=== PATIENT | male | born 1985 | race Caucasian/White ===

== ENCOUNTER 2020-04-06 09:26 | Outpatient (REF) | payer OTHER, SELFPAY | END 2020-04-06 09:27 | disposition home or self-care (01) | LOC: HO.LAB 09:26 | PROVIDERS: Visit Provider Internal Medicine | DX: Z20.822 Contact with and (suspected) exposure to COVID-19 (principal) | CPT/HCPCS: 36415; C9803; U0003 ==

== ENCOUNTER 2020-11-09 08:53 | Outpatient (REF) | payer OTHER, SELFPAY ==
[2020-11-09 10:05] LABS: MANUAL DIFF FLAG NO
[2020-11-09 10:19] LABS: Basophils Percent Auto 0.6 % (0-2); Eosinophils Absolute Auto 0.3 X10*3/uL (0.0-0.4); Eosinophils Percent Auto 5.1 % (0-4); Hematocrit 47.6 % (42-52); Hemoglobin 15.9 g/dl (14.0-18.0); Imm Gran Abs Auto 0.02 X10*3/uL (0.00-0.03); Imm Gran Pct Auto 0.3 % (0.0-0.4); Lymphocytes Absolute Auto 2.5 X10*3/uL (1.2-4.9); Mean Corpuscular HGB Conc 33.4 g/dl (31.0-36.0); Mean Corpuscular Hemoglobin 29.6 pg (27.0-33.0); Mean Corpuscular Volume 88.5 fL (80-98); Mean Platelet Volume 9.3 fL (9.4-12.4); Monocytes Absolute Auto 0.5 X10*3/uL (0.1-1.2); Monocytes Percent Auto 8.3 % (2-11); Neutrophils Absolute Auto 2.9 X10*3/uL (2.0-8.3); Neutrophils Percent Auto 45.7 % (45-73); Platelet Count 306 X10*3/uL (160-400); Red Blood Count 5.38 X10*6/uL (4.60-5.80); Red Cell Distribution Width 11.9 % (11.0-16.0); White Blood Count 6.3 X10*3/uL (4.8-10.8)
[2020-11-09 14:21] LABS: Alanine Aminotransferase 20 U/L (0-40); Albumin Level 4.5 g/dL (3.5-5.0); Alkaline Phosphatase 88 U/L (39-117); Anion Gap 14 (12-20); Aspartate Amino Transferase 18 U/L (5-37); Bilirubin Total 0.6 mg/dL (0.0-1.0); Blood Urea Nitrogen 16 mg/dL (9-16); Calcium 9.6 mg/dL (8.4-10.2); Carbon Dioxide 27 mmol/L (22-29); Chloride 105 mmol/L (96-108); Cholesterol 207 mg/dL; Estimated Glomerular Filt Rate > 60; Glucose Fasting 90 mg/dL (60-99); HDL Cholesterol 43 mg/dL; LDL Cholesterol Calculated 142 mg/dl; Potassium 4.7 mmol/L (3.3-5.1); Sodium 141 mmol/L (135-145); Total Protein 6.8 g/dL (6.5-8.0); Triglycerides 113 mg/dL
[2020-11-13 13:43] LABS: Vitamin D 25-OH, D2 <4 ng/mL; Vitamin D 25-OH, D3 32 ng/mL; Vitamin D 25-OH, Total 32 ng/mL (30-100)
== END 2020-11-09 08:54 | disposition home or self-care (01) ==
LOC: HO.LAB 08:53
PROVIDERS: PCP Internal Medicine; Visit Provider Internal Medicine
DX: E55.9 Vitamin D deficiency, unspecified (principal); E78.5 Hyperlipidemia, unspecified; D64.9 Anemia, unspecified; K21.9 Gastro-esophageal reflux disease without esophagitis
CPT/HCPCS: 36415; 80053; 80061; 82306; 85025

== ENCOUNTER 2021-02-12 17:39 | Emergency (ER) | payer OTHER, SELFPAY ==
[2021-02-12 17:59] VITALS: BP 136/86; PULSE 102; RESP 18; TEMP 36.9; O2SAT 96; BMI 23.1
--- NOTE | 2021-02-12 20:55 | ED_ITS ---
HPI - Dental/Oral General Chief complaint: Dental/Oral Stated complaint: Dental pain Time Seen by Provider: 02/12/21 20:54 History of Present Illness HPI Narrative: Patient 35 years old presents today with having toothache for the last few days. Getting worse. History of similar episodes in the past. Patient has a dentist however was unable to see them in time. Has an appointment on Sunday. No fever no chills no cough no congestion or respiratory symptoms no systemic complaints or changes in voice. Patient from home. Teeth map: 2 1. Related Data Home Medications Medication Instructions Recorded Confirmed ibuprofen 800 mg tablet 800 mg PO TID 03/01/20 11/01/20 meloxicam 15 mg tablet 15 mg PO DAILY 03/01/20 11/01/20 omega-3 fatty acids 1,000 mg 1,000 mg PO DAILY 03/01/20 11/01/20 capsule (Fish Oil Concentrate) Previous Rx's Medication Instructions Recorded omeprazole 20 mg capsule,delayed 20 mg PO DAILY 90 Days #90 cap 06/18/20 release albuterol sulfate 90 mcg/actuation 2 puff PO Q6H PRN 30 Days #6.7 g 06/28/20 aerosol inhaler (ProAir HFA) montelukast 10 mg tablet 10 mg PO DAILY #90 tab 08/11/20 bupropion HCl 150 mg 24 hr tablet, 150 mg PO QAM 90 Days #90 tab 08/24/20 extended release cyclobenzaprine 10 mg tablet 10 mg PO BEDTIME PRN 90 Days #90 09/01/20 tab insert sole #1 ea 11/01/20 levocetirizine 5 mg tablet 5 mg PO DAILY 90 Days #90 tab 12/10/20 penicillin V potassium 500 mg 500 mg PO TID #20 tab 02/12/21 tablet Allergies Allergy/AdvReac Type Severity Reaction Status Date / Time doxycycline Allergy Mild dermatitis Verified 11/01/20 10:57 TICK MEDICINE Allergy Unknown UNKNOWN Uncoded 11/01/20 10:57 Review of Systems Review of Systems: Positive toothache Yes all other systems are reviewed and are negative PMFSH Past Medical History Attestation statement: The following information was validated with the patient. Medical History Ankle joint deformity Ankle pain GERD (gastroesophageal reflux disease) Mild asthma Surgical History History of wisdom tooth extraction Family History Family History Father COPD (chronic obstructive pulmonary disease) Mother Muscular dystrophy Social History Social History Housing: House Alcohol intake: current Alcohol intake frequency: holidays/special occasions only Alcohol type: wine and other Patient Tobacco Use Status: Never used Tobacco e-Cigarette/Vaping Use: Never Used Second Hand Smoke Exposure: No service: No Current occupational status: unemployed Physical Exam Vital Signs: Vital Signs: Last Vital Signs Temp 98.5 F 02/12/21 17:59 Pulse 102 H 02/12/21 17:59 Resp 18 02/12/21 17:59 BP 136/86 02/12/21 17:59 Pulse Ox 96 02/12/21 17:59 Body Mass Index 23.1 Appearance: Alert. Oriented X3. No acute distress. Eyes: Pupils equal, round and reactive to light. ENT: Pharynx normal. Positive tooth decay in the never tent frontal canine on the upper jaw. There is no abscess palpable. Neck: Normal inspection. Neck supple. No lymph nodes noted. No crepitus CVS: Normal heart rate and rhythm. Pulses normal. Normal S1 and S2 Respiratory: No respiratory distress. Breath sounds normal. No Wheezing. No rales Abdomen: Soft and nontender. No rigidity. No distention. good BS x4 Skin: Skin warm and dry. Normal skin color. Normal skin turgor. Extremities: No lower extremity edema. Neurovascular intact to all extremities. No Lacerations. No Rash Neuro: Oriented X 3. No motor deficit. No sensory deficit. Moving all extermities. No slurred speech MDM - Dental/Oral MDM Narrative Medical decision making narrative: Positive tooth decay. Will go ahead and give antibiotics. Patient to be followed up with dentist on Sunday. Differential Diagnosis Differential diagnosis: Likely dental caries Medical Records Attestation: I reviewed the patient's medical records. Discharge Plan Discharge Clinical Impression: Dental caries Patient Disposition: Home, Self-Care Instructions: Toothache (ED) Prescriptions: New penicillin V potassium 500 mg tablet 500 mg PO TID Qty: 20 RF: 0 No Action omeprazole 20 mg capsule,delayed release(DR/EC) 20 mg PO DAILY 90 Days Qty: 90 RF: 3 albuterol sulfate [ProAir HFA] 90 mcg/actuation HFA aerosol inhaler 2 puff PO Q6H PRN (Reason: bronchospasm) 30 Days Qty: 6.7 RF: 3 montelukast 10 mg tablet 10 mg PO DAILY Qty: 90 RF: 3 bupropion HCl 150 mg tablet extended release 24 hr 150 mg PO QAM 90 Days Qty: 90 RF: 1 cyclobenzaprine 10 mg tablet 10 mg PO BEDTIME PRN (Reason: muscle spasm) 90 Days Qty: 90 RF: 1 levocetirizine 5 mg tablet 5 mg PO DAILY 90 Days Qty: 90 RF: 1 omega-3 fatty acids [Fish Oil Concentrate] 1,000 mg capsule 1,000 mg PO DAILY RF: 0 meloxicam 15 mg tablet 15 mg PO DAILY RF: 0 ibuprofen 800 mg tablet 800 mg PO TID RF: 0 (DME) insert sole See Rx Instructions .Route .MEDSUPPLY Qty: 1 RF: 0 Referrals: Belinda Tian MD [Primary Care Provider] - 2 days (Please follow-up with your dentist on Sunday)
== END 2021-02-12 21:44 | disposition home or self-care (01) ==
LOC: HO.ED 21:06
PROVIDERS: Emergency Provider Emergency Medicine Emergency Medical Services; PCP Internal Medicine
DX: K02.9 Dental caries, unspecified (principal)
CPT/HCPCS: 99283

== ENCOUNTER 2021-04-18 07:52 | Outpatient (REF) | payer OTHER, SELFPAY ==
[2021-04-18 09:39] LABS: Binax Now Covid-19 Ag Negative (Negative)
[2021-04-18 09:40] LABS: Binax Internal Control QC Valid
== END 2021-04-18 07:53 | disposition home or self-care (01) ==
LOC: HO.LAB 07:52
PROVIDERS: Visit Provider Internal Medicine
DX: Z20.822 Contact with and (suspected) exposure to COVID-19 (principal)
CPT/HCPCS: C9803

== ENCOUNTER 2021-11-07 08:18 | Outpatient (REF) | payer OTHER, SELFPAY ==
--- NOTE | ~2021-11-07 | XR_ITS ---
EXAMINATION: XR SHOULDER, RIGHT CLINICAL INFORMATION: Right shoulder pain COMPARISON: None TECHNIQUE: Right shoulder is imaged in 4 views. FINDINGS: Normal bony mineralization. No fracture, dislocation, or arthropathy. The acromioclavicular alignment is normal. No visible rotator cuff calcifications. XR/XR shoulder RT min 2V IMPRESSION: Normal right shoulder.
[2021-11-07 09:21] LABS: Alanine Aminotransferase 17 U/L (0-40); Albumin Level 4.6 g/dL (3.5-5.0); Alkaline Phosphatase 84 U/L (39-117); Anion Gap 12 (12-20); Aspartate Amino Transferase 16 U/L (5-37); Bilirubin Total 0.8 mg/dL (0.0-1.0); Blood Urea Nitrogen 19 mg/dL (9-16); Calcium 9.2 mg/dL (8.4-10.2); Carbon Dioxide 30 mmol/L (22-29); Chloride 104 mmol/L (96-108); Cholesterol 200 mg/dL; Estimated Glomerular Filt Rate > 60; Glucose Fasting 104 mg/dL (60-99); HDL Cholesterol 43 mg/dL; LDL Cholesterol Calculated 142 mg/dl; Potassium 4.4 mmol/L (3.3-5.1); Sodium 142 mmol/L (135-145); Triglycerides 76 mg/dL
== END 2021-11-07 08:19 | disposition home or self-care (01) ==
LOC: HO.LAB 08:18
PROVIDERS: PCP Internal Medicine; Visit Provider Internal Medicine
DX: Z00.00 Encounter for general adult medical examination without abnormal findings (principal); M25.511 Pain in right shoulder
CPT/HCPCS: 36415; 73030; 80053; 80061

== ENCOUNTER 2022-09-07 12:32 | Outpatient (REF) | payer OTHER, SELFPAY ==
--- NOTE | 2022-09-07 12:39 | ECG_ITS ---
Test Reason : PREOP Blood Pressure : / mmHG Vent. Rate : 079 BPM Atrial Rate : 079 BPM P-R Int : 158 ms QRS Dur : 082 ms QT Int : 322 ms P-R-T Axes : 020 020 045 degrees QTc Int : 369 ms Normal sinus rhythm Minimal voltage criteria for LVH, may be normal variant ( Sokolow-Forrest ) Borderline ECG When compared with ECG of 11-JUL-2004 20:50, No significant change was found Referred By: Violet Ochoa Electronically Signed By:ABILIO WESTON MD
[2022-09-07 12:51] LABS: MANUAL DIFF FLAG NO
[2022-09-07 14:17] LABS: Basophils Absolute Auto 0.1 X10*3/uL (0.0-0.2); Basophils Percent Auto 0.6 % (0-2); Eosinophils Absolute Auto 0.5 X10*3/uL (0.0-0.4); Eosinophils Percent Auto 5.7 % (0-4); Hematocrit 49.4 % (42.0-52.0); Hemoglobin 16.6 g/dl (14.0-18.0); Imm Gran Abs Auto 0.02 X10*3/uL (0.00-0.03); Imm Gran Pct Auto 0.2 % (0.0-0.4); Lymphocytes Absolute Auto 2.3 X10*3/uL (1.2-4.9); Lymphocytes Percent Auto 27.9 % (20-40); Mean Corpuscular HGB Conc 33.6 g/dl (31.0-36.0); Mean Corpuscular Hemoglobin 29.3 pg (27.0-33.0); Mean Corpuscular Volume 87.1 fL (80.0-98.0); Mean Platelet Volume 9.4 fL (9.4-12.4); Monocytes Absolute Auto 0.7 X10*3/uL (0.1-1.2); Monocytes Percent Auto 8.3 % (2-11); Neutrophils Absolute Auto 4.6 x10*3/uL (2.0-8.3); Neutrophils Percent Auto 57.3 % (45-73); Platelet Count 296 X10*3/uL (160-400); Red Blood Count 5.67 X10*6/uL (4.60-5.80); White Blood Count 8.1 X10*3/uL (4.8-10.8)
[2022-09-07 14:41] LABS: Estimated Average Glucose 100 mg/dL; Hemoglobin A1c % 5.1 %
[2022-09-07 14:49] LABS: Alanine Aminotransferase 22 U/L (0-40); Albumin Level 4.6 g/dL (3.5-5.0); Alkaline Phosphatase 86 U/L (39-117); Anion Gap 15 (12-20); Aspartate Amino Transferase 18 U/L (5-37); Bilirubin Total 0.6 mg/dL (0.0-1.0); Blood Urea Nitrogen 19 mg/dL (9-16); Calcium 9.6 mg/dL (8.4-10.2); Carbon Dioxide 28 mmol/L (22-29); Chloride 105 mmol/L (96-108); Estimated Glomerular Filt Rate > 60; Glucose Random 77 mg/dL (60-115); Potassium 3.9 mmol/L (3.3-5.1); Sodium 144 mmol/L (135-145); Total Protein 7.3 g/dL (6.5-8.0)
== END 2022-09-07 12:33 | disposition home or self-care (01) ==
LOC: HO.LAB 12:32
PROVIDERS: PCP Internal Medicine; Visit Provider Nurse Practitioner Family
DX: Z01.810 Encounter for preprocedural cardiovascular examination (principal)
CPT/HCPCS: 36415; 80053; 83036; 85025; 85610; 93005

== ENCOUNTER 2022-11-08 09:21 | Outpatient (AMB) | payer OTHER, SELFPAY ==
--- NOTE | 2022-11-08 09:31 | A.OFFPC_ITS ---
Vital Signs 11/08/22 09:32 Height 5 ft 4 in Weight 140 lb BMI 24.0 BP 130/84 Blood Pressure Location Lt brachial Position Sitting Pulse 113 H Pulse Source Pulse Oximeter Pulse Oximetry (%) 98 Oxygen Delivery Method Room Air Intake Visit Reasons: Annual Exam Intake Note: Patient is here today for a physical. 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 Accompanied by: Self / Same As Patient Allergies doxycycline Allergy (Mild, Verified 11/08/22 09:41) dermatitis TICK MEDICINE Allergy (Unknown, Uncoded 11/08/22 09:41) UNKNOWN Medication List - Last Reconciled 11/08/22 by Belinda Shirley MD acetaminophen ER (Tylenol Arthritis Pain) 1,300 mg PO Q12H albuterol sulfate 90 mcg/actuation (ProAir HFA) 2 puffs PO Q6H PRN 30 days bupropion HCl 150 mg PO QAM 90 days cyclobenzaprine 10 mg PO TID 30 days fexofenadine 180 mg PO DAILY PRN fluticasone propionate 50 mcg/actuation 1 spray intranasal DAILY gabapentin 400 mg PO DAILY ibuprofen 800 mg PO Q8H [insert sole As directed] montelukast 10 mg PO DAILY omega-3 fatty acids (Fish Oil Concentrate) 1,000 mg PO DAILY omeprazole 20 mg PO DAILY 90 days Tobacco use date assessed: 09/07/22 Dental Screening Dental Screen Date: 11/08/22 Did you have a dental visit in the last 12 months?: No Did you have a dental problem in the last 6 months where you did not have access to dental care?: No Was dental information given to patient?: Patient has dentist HPI HPI Comments History of Present Illness Details This is a 37-year-old male that comes for his physical exam. No acute complaints. On crutches due to left ankle surgery done 09/22/2022. Accompanied by frank. [facility] Medical History Ankle joint deformity Ankle pain GERD (gastroesophageal reflux disease) Mild asthma Surgical History (Updated 11/08/22 @ 09:59 by Belinda Shirley MD) H/O tooth extraction History of wisdom tooth extraction Left ankle joint deformity Family History Father COPD (chronic obstructive pulmonary disease) Mother Muscular dystrophy Social History Housing: House Alcohol intake: current Alcohol intake frequency: holidays/special occasions only Alcohol type: wine and other Patient Tobacco Use Status: Never used Tobacco e-Cigarette/Vaping Use: Never Used Second Hand Smoke Exposure: No service: No Current occupational status: unemployed Cognitive needs: Yes Hearing needs: No Vision needs: No Questionnaire PHQ-9 Over the last 2 weeks, how often have you been bothered by any of the following problems? 1. Little interest or pleasure in doing things: not at all 2. Feeling down, depressed, or hopeless: not at all 3. Trouble falling or staying asleep, or sleeping too much: not at all 4. Feeling tired or having little energy: not at all 5. Poor appetite or overeating: not at all 6. Feeling bad about yourself - or that you are a failure or have let yourself or your family down: not at all 7. Trouble concentrating on things, such as reading the newspaper or watching television: not at all 8. Moving or speaking so slowly that other people could have noticed. Or the opposite - being so fidgety or restless that you have been moving around a lot more than usual: not at all 9. Thoughts that you would be better off or of hurting yourself in some way: not at all Total score: 0 Depression Screening Interpretation: Negative 01529 - PHQ-9 Billing: Yes Source: Developed by Drs. Moises Patino, Lisset Johnson, Arcenio Garcia and colleagues, with an educational sandy from [employer]. Thrive Questionnaire Date Thrive assessed: 11/08/22 I am a: Patient What is your living situation today?: I have a steady place to live Within the past 12 months, did the food you bought not last and you didn't have the money to get more?: Never true Within the past 12 months, did you worry whether your food would run out before you got money to buy more?: Never true Do you have trouble paying for medicines?: No Do you have trouble getting transportation to medical appointments?: No Do you have trouble paying your heating and electricity bill?: No Do you have trouble taking care of your child, family member or friend?: No Do you have trouble with day-to-day activities such as bathing, preparing meals, shopping, managing finances, etc.?: No Are you currently unemployed and looking for a job?: No Are you interested in more education?: No Please select the resources that you would like help with: None Currently or been in a relationship where the following occur: no concerns reported AUDIT C Alcohol Use Questionnaire (AUDIT-C) 1. How often do you have a drink containing alcohol?: Monthly or less 2. How many drinks containing alcohol do you have on a typical day when you are drinking?: 1 or 2 3. How often do you have six or more drinks on one occasion?: Never Total Score: 1 Score Reviewed/Action Taken: No ALLAN-7 AMB Questionnaire ALLAN-7 Date ALLAN - 7 assessed: 11/08/22 Feeling nervous, anxious, or on edge: 0 = Not at all Not being able to stop or control worryin = Not at all Worrying too much about different things: 0 = Not at all Trouble relaxin = Not at all Being so restless that it is hard to sit still: 0 = Not at all Becoming easily annoyed or irritable: 0 = Not at all Feeling afraid as if something awful might happen: 0 = Not at all Total ALLAN-7 score (0-4 normal; 5-9 mild; 10-14 moderate; 15-21 severe): 0 Source: Developed by Drs. Moises Patino, Lisset Johnson, Arcenio Garcia and colleagues, with an educational sandy from [employer]. ALLAN-7 Assessment Billing ALLAN-7 Assessment Tool: ALLAN-7 Assessment 72775 Review of Systems Const All systems reviewed & are unremarkable except as noted in HPI and below Eyes Reports no additional complaints, Denies change in vision and Denies other visual disturbances Card Denies chest pain at rest, Denies chest pain with activity, Denies edema, Denies irregular heart rhythm, Denies claudication, Denies dyspnea, Denies dyspnea on exertion, Denies orthopnea, Denies paroxysmal nocturnal dyspnea and Denies slow heart rate Resp Denies cough, Denies dyspnea and Denies dyspnea on exertion GI Denies abdominal pain, Denies change in bowel habits, Denies excessive flatus, Denies nausea and Denies vomiting Denies urinary hesitancy, Denies urinary incontinence and Denies urinary urgency Musc Denies abnormal gait, Denies atrophy, Denies deformity and Denies limited range of motion Skin/Breast Denies bleeding lesions, Denies changing lesions and Denies rash Neuro Denies abnormal gait and Denies lack of coordination Physical exam (Primary Care) Vital Signs: Last Vital Signs Pulse 113 H 11/08/22 09:32 BP 130/84 11/08/22 09:32 Pulse Ox 98 11/08/22 09:32 Oxygen Delivery Method Room Air 11/08/22 09:32 BMI result Body Mass Index 24.0 Tobacco/Smoking Status: Tobacco use Status Tobacco use date assessed 09/07/22 11/08/22 09:38 Patient Tobacco Use Status Never used Tobacco 11/08/22 09:38 e-Cigarette/Vaping Use Never Used 11/08/22 09:38 PHQ-9: PHQ-9 Score PHQ-9: Total score 0 11/08/22 09:38 Depression Screening Interpretation: Negative Thrive Assessment: Date of Thrive Assessment Date Thrive assessed 11/08/22 11/08/22 09:38 Currently or been in a relationship where the following occur: no concerns reported Const Orientation/consciousness: patient oriented x3 Limitations: crutches HENMT Head: Yes normal to inspection, Yes normocephalic and Yes atraumatic Ears: external ears normal Eyes General: appearance normal, both eyes and all related structures Eyelids: Yes eyelids normal Conjunctivae: conjunctivae normal Neck Neck: Yes normal visual inspection and Yes supple Resp Effort & Inspection: normal respiratory effort Auscultation: clear to auscultation bilaterally Cardio Jugular venous distension: no JVD Rate: regular rate Rhythm: regular rhythm Heart sounds: S1 normal heart sound present and S2 normal heart sound present GI Inspection: Yes normal to inspection Palpation (GI): Soft to palpation and nontender Auscultation: normal bowel sounds Skin General skin exam: no rashes or lesions noted Neuro General: patient oriented x3 and no focal motor deficits Extrem Other: unna boot on left foot Psych Appearance: grossly normal Assessment and Plan Assessment & Plan (1) Encounter for physical examination: Code(s): Z00.00 - Encounter for general adult medical examination without abnormal findings Plan: Repeat in a year. Coding Level of Care Code Est Pt Prev Care 18-39y(66358) Diagnoses Encounter for physical examination Z00.00 Additional Codes ALLAN-7 Assessment Billing - ALLAN-7 Assessment Tool: ALLAN-7 Assessment 27467 ([id number]) Time Spent (min) 32
[2022-11-08 09:32] VITALS: BP 130/84; PULSE 113; O2SAT 98; BMI 24.0
== END 2022-11-08 09:55 | disposition home or self-care (01) ==
PROVIDERS: PCP Internal Medicine; Visit Provider Internal Medicine
DX: Z00.00 Encounter for general adult medical examination without abnormal findings (principal)
CPT/HCPCS: 99395

== ENCOUNTER 2023-04-02 12:35 | Outpatient (AMB) | payer OTHER, SELFPAY ==
[2023-04-02 13:56] VITALS: BP 120/82; PULSE 94; TEMP 36.9; O2SAT 98; BMI 24.6
--- NOTE | 2023-04-02 13:56 | MHC.OFFWIV ---
Intake Vital Signs 04/02/23 13:56 Height 5 ft 4 in Weight 143 lb 8 oz BMI 24.6 BP 120/82 Blood Pressure Location Lt brachial Position Sitting Pulse 94 Pulse Source Pulse Oximeter Temp 98.5 F Temp Source Oral Pulse Oximetry (%) 98 Oxygen Delivery Method Room Air Intake Visit Reasons: EST/ dry cough (lobby masked) Intake Note: Patient is here with dry cough since , getting worse with upper back pain. Patient Tobacco Use Status: Never used Tobacco Allergies doxycycline Allergy (Mild, Verified 04/02/23 13:57) dermatitis TICK MEDICINE Allergy (Unknown, Uncoded 04/02/23 13:57) UNKNOWN Do you need a note to return to daycare/school/sports/work: No HPI HPI Comments History of Present Illness Details Patient presents to the walkin clinic today for cough, congestion for last 5 days. He reports significant other has been sick with the same, she is a teacher and caught it from a student Patient has been using OTC medications but symptoms persist He reports cough, sinus congestion, fatigue and body aches denies chest pain, syncope, palpitations, dizziness weakness, nausea, vomiting, diarrhea PFSH Medical History (Updated 04/02/23 @ 15:27 by Mary Garcia APRN, CORRECTIONAL SECURITY OFFICER) Ankle joint deformity GERD (gastroesophageal reflux disease) Ankle pain Mild asthma Surgical History (Updated 11/08/22 @ 09:59 by Belinda Shirley MD) H/O tooth extraction Left ankle joint deformity History of wisdom tooth extraction Family History Father COPD (chronic obstructive pulmonary disease) Mother Muscular dystrophy Social History Housing: House Alcohol intake: current Alcohol intake frequency: holidays/special occasions only Alcohol type: wine and other Patient Tobacco Use Status: Never used Tobacco e-Cigarette/Vaping Use: Never Used Second Hand Smoke Exposure: No service: No Current occupational status: unemployed Cognitive needs: Yes Hearing needs: No Vision needs: No Review of Systems Const All systems reviewed & are unremarkable except as noted in HPI and below Physical Exam Vital Signs: Last Vital Signs Temp 98.5 F 04/02/23 13:56 Pulse 94 04/02/23 13:56 BP 120/82 04/02/23 13:56 Pulse Ox 98 04/02/23 13:56 Oxygen Delivery Method Room Air 04/02/23 13:56 BMI result Body Mass Index 24.6 General: awake, alert, oriented. Answers questions appropriately. Fully engaged in examination. Skin: warm, dry, intact HEENT: TMs intact bilaterally, no redness. Posterior pharynx without erythema or exudate. Sclera without icterus or injection. Cardiac: External chest normal in appearance. Respiratory: +cough. LSCTAB. Abdomen: without gross distension. Neurological: Oriented to person, place, time and situation. Thought process intact. Psychiatric: Appropriate mood and affect. Good judgment and insight. Assessment & Plan Assessment & Plan (1) Upper respiratory infection: Code(s): J06.9 - Acute upper respiratory infection, unspecified Plan URI, no abx warranted. SARS-CoV2/FLU/RSV swab collected, results pending. Patient aware he will be called with results. Benzonatate 100mg po bid as needed Rest, drink plenty of fluids, tylenol or motrin as needed. Recommend taking OTC nasal decongestants or flonase. Follow up with pcp or in clinic for any new or worsening symptoms. Go to ER for shortness of breath, chest pain, palpitations, weakness, dizziness. All questions and concerns answered during visit, patient agrees with plan. Orders: Orders SARS-CoV2/FLU/RSV Today J06.9 - Acute upper respiratory infection, unspecified Medications: New benzonatate 100 mg PO BID PRN 20 caps 0RF cough Coding Level of Care Code Est Pt Level 4 (58943) Diagnoses Upper respiratory infection J06.9
== END 2023-04-02 15:02 | disposition home or self-care (01) ==
PROVIDERS: PCP Internal Medicine; Visit Provider Registered Nurse Emergency
DX: J06.9 Acute upper respiratory infection, unspecified (principal)
CPT/HCPCS: 99214

== ENCOUNTER 2023-04-02 14:49 | Outpatient (REF) | payer OTHER, SELFPAY ==
[2023-04-02 18:02] LABS: Influenza A PCR NEGATIVE (Negative); Influenza B PCR NEGATIVE (Negative); Resp Syncy Virus RNA Qual PCR NEGATIVE (Negative); SARS COV2 PCR INHOUSE NEGATIVE (Negative)
== END 2023-04-02 14:50 | disposition home or self-care (01) ==
LOC: HO.LAB 14:49
PROVIDERS: Visit Provider Registered Nurse Emergency
DX: J06.9 Acute upper respiratory infection, unspecified (principal); Z11.52 Encounter for screening for COVID-19; Z20.828 Contact with and (suspected) exposure to other viral communicable diseases
CPT/HCPCS: 0241U

== ENCOUNTER 2023-11-13 09:11 | Outpatient (AMB) | payer OTHER, SELFPAY ==
--- NOTE | 2023-11-13 09:15 | MHC.PC.OV ---
Vital Signs 11/13/23 09:17 Height 5 ft 4 in Weight 142 lb BMI 24.4 BP 130/82 Blood Pressure Location Lt brachial Position Sitting Intake Visit Reasons: Annual Exam Intake Note: Patient here for a physical exam Overlock Elastic Attacher Required: No Accompanied by: Self / Same As Patient Allergies doxycycline Allergy (Mild, Verified 11/13/23 09:56) dermatitis TICK MEDICINE Allergy (Unknown, Uncoded 11/13/23 09:56) UNKNOWN Medication List - Last Reconciled 11/13/23 by Belinda Shirley MD bupropion HCl XL 150 mg PO QAM 90 days cyclobenzaprine 10 mg PO TID 30 days fexofenadine 180 mg PO DAILY PRN fluticasone propionate 50 mcg/actuation 1 spray intranasal DAILY ibuprofen 800 mg PO Q8H PRN 30 days [insert sole As directed] montelukast 10 mg PO DAILY omega-3 fatty acids (Fish Oil Concentrate) 1,000 mg PO DAILY omeprazole 20 mg PO DAILY 90 days Ventolin HFA 90 mcg/actuation (albuterol sulfate) 2 puffs inhalation Q6H PRN 30 days NS Tobacco use date assessed: 11/13/23 Dental Screening Dental Screen Date: 11/13/23 Did you have a dental visit in the last 12 months?: Yes Did you have a dental problem in the last 6 months where you did not have access to dental care?: No Was dental information given to patient?: Patient has dentist HPI HPI Comments History of Present Illness Details This is a 38-year-old male that comes for his physical exam. No chest pain or shortness on breath. No acute complaint. [facility] Medical History Ankle joint deformity GERD (gastroesophageal reflux disease) Ankle pain Mild asthma Surgical History H/O tooth extraction Left ankle joint deformity History of wisdom tooth extraction Family History Father COPD (chronic obstructive pulmonary disease) Mother Muscular dystrophy Social History Housing: House Alcohol intake: current Alcohol intake frequency: holidays/special occasions only Alcohol type: wine and other Patient Tobacco Use Status: Never used Tobacco e-Cigarette/Vaping Use: Never Used Second Hand Smoke Exposure: No service: No Current occupational status: unemployed Cognitive needs: Yes Hearing needs: No Vision needs: No Questionnaire PHQ-9 Over the last 2 weeks, how often have you been bothered by any of the following problems? 1. Little interest or pleasure in doing things: not at all 2. Feeling down, depressed, or hopeless: not at all 3. Trouble falling or staying asleep, or sleeping too much: not at all 4. Feeling tired or having little energy: not at all 5. Poor appetite or overeating: not at all 6. Feeling bad about yourself - or that you are a failure or have let yourself or your family down: not at all 7. Trouble concentrating on things, such as reading the newspaper or watching television: not at all 8. Moving or speaking so slowly that other people could have noticed. Or the opposite - being so fidgety or restless that you have been moving around a lot more than usual: not at all 9. Thoughts that you would be better off or of hurting yourself in some way: not at all Total score: 0 Depression Screening Interpretation: Negative Depression Screening Done: Yes 36013 - PHQ-9 Billing: Yes Source: Developed by Drs. Moises Patino, Lisset Johnson, Arcenio Garcia and colleagues, with an educational sandy from [employer]. Thrive Questionnaire Date Thrive assessed: 11/13/23 I am a: Patient What is your living situation today?: I have a steady place to live Within the past 12 months, did the food you bought not last and you didn't have the money to get more?: Never true Within the past 12 months, did you worry whether your food would run out before you got money to buy more?: Never true Do you have trouble paying for medicines?: No Do you have trouble getting transportation to medical appointments?: No Do you have trouble paying your heating and electricity bill?: No Do you have trouble taking care of your child, family member or friend?: No Do you have trouble with day-to-day activities such as bathing, preparing meals, shopping, managing finances, etc.?: No Are you currently unemployed and looking for a job?: No Are you interested in more education?: No Please select the resources that you would like help with: None Currently or been in a relationship where the following occur: No concerns reported THRIVE Score: 0 AUDIT C Alcohol Use Questionnaire (AUDIT-C) 1. How often do you have a drink containing alcohol?: Monthly or less 2. How many drinks containing alcohol do you have on a typical day when you are drinking?: 1 or 2 3. How often do you have six or more drinks on one occasion?: Never Total Score: 1 Score Reviewed/Action Taken: No ALLAN-7 AMB Questionnaire ALLAN-7 Date ALLAN - 7 assessed: 11/13/23 Feeling nervous, anxious, or on edge: 0 = Not at all Not being able to stop or control worryin = Not at all Worrying too much about different things: 0 = Not at all Trouble relaxin = Not at all Being so restless that it is hard to sit still: 0 = Not at all Becoming easily annoyed or irritable: 0 = Not at all Feeling afraid as if something awful might happen: 0 = Not at all Total ALLAN-7 score (0-4 normal; 5-9 mild; 10-14 moderate; 15-21 severe): 0 Source: Developed by Drs. Moises Patino, Lisset Johnson, Arcenio Garcia and colleagues, with an educational sandy from [employer]. ALLAN-7 Assessment Billing ALLAN-7 Assessment Tool: ALLAN-7 Assessment 54038 Review of Systems Const All systems reviewed & are unremarkable except as noted in HPI and below Card Denies chest pain at rest, Denies chest pain with activity, Denies edema, Denies irregular heart rhythm, Denies claudication, Denies dyspnea, Denies dyspnea on exertion, Denies orthopnea, Denies paroxysmal nocturnal dyspnea and Denies slow heart rate Resp Denies cough, Denies dyspnea and Denies dyspnea on exertion GI Denies abdominal pain, Denies change in bowel habits, Denies excessive flatus, Denies nausea and Denies vomiting Denies urinary hesitancy, Denies urinary incontinence and Denies urinary urgency Musc Denies abnormal gait, Denies atrophy, Denies deformity and Denies limited range of motion Skin/Breast Denies bleeding lesions, Denies changing lesions and Denies rash Neuro Denies abnormal gait, Denies behavioral changes and Denies lack of coordination Psych Denies behavioral changes Physical exam (Primary Care) Vital Signs: Last Vital Signs BP 130/82 11/13/23 09:17 BMI result Body Mass Index 24.4 Tobacco/Smoking Status: Tobacco use Status Tobacco use date assessed 11/13/23 11/13/23 09:23 Patient Tobacco Use Status Never used Tobacco 11/13/23 09:23 e-Cigarette/Vaping Use Never Used 11/13/23 09:23 PHQ-9: PHQ-9 Score PHQ-9: Total score 0 11/13/23 09:59 Depression Screening Interpretation: Negative Thrive Assessment: Date of Thrive Assessment Date Thrive assessed 11/13/23 11/13/23 09:23 Currently or been in a relationship where the following occur: No concerns reported HENMT Head: Yes normal to inspection, Yes normocephalic and Yes atraumatic Ears: external ears normal Eyes General: appearance normal, both eyes and all related structures Eyelids: Yes eyelids normal Conjunctivae: conjunctivae normal Neck Neck: Yes normal visual inspection and Yes supple Resp Effort & Inspection: normal respiratory effort Auscultation: clear to auscultation bilaterally Cardio Jugular venous distension: no JVD Rate: regular rate Rhythm: regular rhythm Heart sounds: S1 normal heart sound present and S2 normal heart sound present GI Inspection: Yes normal to inspection Palpation (GI): Soft to palpation and nontender Auscultation: normal bowel sounds Skin General skin exam: no rashes or lesions noted Neuro General: no focal motor deficits Extrem General: Yes full ROM Psych Appearance: grossly normal Assessment and Plan Assessment & Plan (1) Encounter for physical examination: Code(s): Z00.00 - Encounter for general adult medical examination without abnormal findings Plan: Repeat in a year. Orders: Orders Lipid Panel Today E78.5 - Hyperlipidemia, unspecified, Z00.00 - Encounter for general adult medical examination without abnormal findings Comprehensive [place]. Panel Fast Today Z00.00 - Encounter for general adult medical examination without abnormal findings Medications: Changed From fluticasone propionate 50 mcg/actuation administer into each nostril 1 spray intranasal DAILY To fluticasone propionate 50 mcg/actuation administer into each nostril 1 spray intranasal DAILY 16 grams 2RF 30 days Coding Level of Care Code Est Pt Prev Care 18-39y(76894) Diagnoses Encounter for physical examination Z00.00 Additional Codes ALLAN-7 Assessment Billing - ALLAN-7 Assessment Tool: ALLAN-7 Assessment 25981 ([id number]) Time Spent (min) 30
[2023-11-13 09:17] VITALS: BP 130/82; BMI 24.4
== END 2023-11-13 10:04 | disposition home or self-care (01) ==
PROVIDERS: PCP Internal Medicine; Visit Provider Internal Medicine
DX: Z00.00 Encounter for general adult medical examination without abnormal findings (principal)
CPT/HCPCS: 99395

== ENCOUNTER 2023-11-19 07:23 | Outpatient (REF) | payer OTHER, SELFPAY ==
[2023-11-19 08:15] LABS: Alanine Aminotransferase 18 U/L (0-40); Albumin Level 4.3 g/dL (3.5-5.0); Alkaline Phosphatase 74 U/L (39-117); Anion Gap 12 (12-20); Aspartate Amino Transferase 15 U/L (5-37); Bilirubin Total 0.6 mg/dL (0.0-1.0); Blood Urea Nitrogen 13 mg/dL (9-16); Calcium 9.3 mg/dL (8.4-10.2); Carbon Dioxide 27 mmol/L (22-29); Chloride 107 mmol/L (96-108); Cholesterol 216 mg/dL (<200); Estimated Glomerular Filt Rate > 60; Glucose Fasting 105 mg/dL (60-99); HDL Cholesterol 43 mg/dL (>40); LDL Cholesterol Calculated 142 mg/dL (<100); Potassium 4.6 mmol/L (3.3-5.1); Sodium 141 mmol/L (135-145); Total Protein 6.6 g/dL (6.5-8.0); Triglycerides 157 mg/dL (<150)
== END 2023-11-19 07:24 | disposition home or self-care (01) ==
LOC: HO.LAB 07:23
PROVIDERS: PCP Internal Medicine; Visit Provider Internal Medicine
DX: Z00.00 Encounter for general adult medical examination without abnormal findings (principal); E78.5 Hyperlipidemia, unspecified
CPT/HCPCS: 36415; 80053; 80061

== ENCOUNTER 2024-09-02 11:29 | Outpatient (AMB) | payer OTHER, SELFPAY ==
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
[2024-09-02 11:46] VITALS: BP 110/70; PULSE 72; O2SAT 98
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
== END 2024-09-02 16:00 | disposition home or self-care (01) ==
PROVIDERS: PCP Internal Medicine; Visit Provider Physician Assistant
DX: S16.1XXA Strain of muscle, fascia and tendon at neck level, initial encounter (principal); V89.2XXA Person injured in unspecified motor-vehicle accident, traffic, initial encounter; M54.2 Cervicalgia; Z04.3 Encounter for examination and observation following other accident

== ENCOUNTER → 2024-09-02 11:29 | Outpatient (BNVA) | payer OTHER, SELFPAY | PROVIDERS: PCP Internal Medicine; Visit Provider Physician Assistant ==

== ENCOUNTER 2024-12-29 09:12 | Outpatient (AMB) | payer OTHER, SELFPAY ==
--- NOTE | 2024-12-29 09:52 | MHC.OFFWIV ---
Intake Vital Signs 12/29/24 09:53 Height 5 ft 4.25 in Weight 147 lb BMI 25.0 BP 112/80 Blood Pressure Location Lt brachial Position Sitting Pulse 82 Pulse Source Pulse Oximeter Temp 98.3 F Temp Source Oral Pulse Oximetry (%) 97 Oxygen Delivery Method Room Air Intake Visit Reasons: EP Sinus infection Intake Note: pt presents with sinus pressure/pain after a head cold, still with mild coughing and dark green mucus Patient Tobacco Use Status: Never used Tobacco Allergies doxycycline Allergy (Mild, Verified 12/29/24 09:55) dermatitis Do you need a note to return to daycare/school/sports/work: No HPI HPI Comments History of Present Illness Details 39 y/o Male patient who presents to the walk in clinic with c/o Sinus congestion and pressure for 4 days now. Reports Nasal congestion, runny nose and Green discharge from Nose. Reports mild Frontal Headache. Denies fevers, chills, nausea or vomiting. with similar symptoms. He has been using OTC remedies with some improvement. FORMERLY [facility], 1928–1983 Medical History Ankle joint deformity GERD (gastroesophageal reflux disease) Ankle pain Mild asthma Surgical History H/O tooth extraction Left ankle joint deformity History of wisdom tooth extraction Family History Father COPD (chronic obstructive pulmonary disease) Mother Muscular dystrophy Social History Housing: House Alcohol intake: current Alcohol intake frequency: holidays/special occasions only Alcohol type: wine and other Patient Tobacco Use Status: Never used Tobacco e-Cigarette/Vaping Use: Never Used Second Hand Smoke Exposure: No service: No Current occupational status: unemployed Cognitive needs: Yes Hearing needs: No Vision needs: No Review of Systems Const All systems reviewed & are unremarkable except as noted in HPI and below Physical Exam Vital Signs: Last Vital Signs Temp 98.3 F 12/29/24 09:53 Pulse 82 12/29/24 09:53 BP 112/80 12/29/24 09:53 Pulse Ox 97 12/29/24 09:53 Oxygen Delivery Method Room Air 12/29/24 09:53 BMI result Body Mass Index 25.0 Const General: no acute distress Nutritional Appearance: well nourished Orientation/consciousness: patient oriented x3 HEENT Head: Yes normocephalic Ears: external ears normal and TM abnormal with fluid behind the TM bilateral General nose exam: Abnormal mucous membranes and turbinates present boggy Face and sinus: Yes sinuses nontender Mouth: moist mucous membranes Throat: Yes uvula midline Resp Effort & Inspection: normal respiratory effort and able to speak in complete sentences Auscultation: clear to auscultation bilaterally, no crackles, no rales, no rhonchi and no wheezes Cardio Heart sounds: S1 normal heart sound present and S2 normal heart sound present Neuro General: patient oriented x3 Assessment & Plan Assessment & Plan (1) Upper respiratory infection: Code(s): J06.9 - Acute upper respiratory infection, unspecified Qualifiers: URI type: acute nasopharyngitis (common cold) Qualified Code(s): J00 - Acute nasopharyngitis [common cold] Plan: Ordered Respiratory Panel Ordered Afrin Nasal [place] for 3 days Only Ordered Sudafed and Acetaminophen for body aches. Rest and hydrate well with warm fluids. Orders: Orders Resp Pathogen Panel - [facility] [place] Today J00 - Acute nasopharyngitis [common cold] Medications: New acetaminophen 1,000 mg (2 x 500 mg) PO Q6H PRN 30 caps 0RF pain J00 - Acute nasopharyngitis [common cold] pseudoephedrine HCl ER (Sudafed 12 Hour) 120 mg PO Q12H 30 tabs 0RF J00 - Acute nasopharyngitis [common cold] oxymetazoline 0.05% (Afrin (oxymetazoline)) 2 sprays intranasal Q12H PRN 22 mL 0RF nasal congestion 3 days J00 - Acute nasopharyngitis [common cold] Coding Level of Care Code Est Pt Level 4 (90174) Diagnoses Acute nasopharyngitis J00 URI type: acute nasopharyngitis (common cold) Time Spent (min) 20
[2024-12-29 09:53] VITALS: BP 112/80; PULSE 82; TEMP 36.8; O2SAT 97; BMI 25.0
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
--- OUTSIDE RECORDS SUMMARY | 2024-12-29 10:21 | XMS_ITS | Patient Health Record ---
Author Organization [facility] Address [address] [place] [address] Care Team Providers Care Bench Repair Technician Name Role Phone NONE, NONE Primary Care Provider Cory Cazares Jr Unavailable [phone] Allergies Allergen (clinical drug ingredient) Drug/Non Drug Allergy documented on EMR Reaction Allergy Type Onset Date Status not sure name (uncoded) Unknown Allergy Active Reason For Referral No Information Medications Medication SIG (Take, Route, Frequency, Duration) Notes Start Date End Date Status Vitamin D3 1000 UNIT Oral for 30 Active Abilify Active Omeprazole 20 MG TAKE 1 CAPSULE BY MO UTH EVERY DAY Active Omeprazole 20 MG 1 tablet Orally Once a day for 30 Active Omeprazole 20 TAKE ONE CAPSULE BY MOUTH ONCE DAILY. Orally Once a day for 30 days Active Methylphenidate HCl ER 54 MG (Schedule I I Drug) take 1 tablet by mouth every morning Oral for 30 Active Fexofenadine HCl 180 MG take 1 tablet by mouth once daily Oral for 30 Active Problems Problem Type SNOMED Code ICD Code Onset Dates Problem Status W/U Status Risk Notes Problem [id number] Gastroesophageal reflux disease without esophagitis (K21.9) Active confirmed Plan Of Treatment No Information Insurance Providers Payer Name Payer Address Payer Phone Subscriber Number Group Number Insured Name Patient Relationship to Insured Coverage Start Date Coverage End Date [facility] [address] [address] [place], [place] [id number] SHABANA OTOOLE Self - patient is the insured MEDICAID OF [facility] [address] [place] [address] [id number] SHABANA OTOOLE Self - patient is the insured Medical (General) History Medical History History ICD Code egd 09-14-2010 reflux congenital ankle deformity treated with orthotics asthma bipolar disorder ADHD mood swings esophageal polyp Denies UT,DM,CVA,Lung disease,renal dise ase Surgical History Surgery Date(Month/Year) oral surgery
== END 2024-12-29 10:39 | disposition home or self-care (01) ==
PROVIDERS: PCP Internal Medicine; Visit Provider Nurse Practitioner Family
DX: J00 Acute nasopharyngitis [common cold] (principal)

== ENCOUNTER 2024-12-29 09:12 | Outpatient (REF) | payer OTHER, SELFPAY ==
[2024-12-29 15:29] LABS: Chlamydia pneumoniae PCR Not Detected (Not Detect.); Coronavirus 229E PCR Not Detected (Not Detect.); Coronavirus HKU1 PCR Not Detected (Not Detect.); Coronavirus NL63 PCR Not Detected (Not Detect.); Coronavirus OC43 PCR Not Detected (Not Detect.); RSV PCR Not Detected (Not Detect.); Rhino/Enterovirus PCR Detected (Not Detect.)
[2024-12-29 16:02] LABS: Influenza A H1 PCR Not Detected (Not Detect.); Influenza A H1-2009 PCR Not Detected (Not Detect.); Influenza A H3 PCR Not Detected (Not Detect.); SARS-CoV-2 PCR Not Detected (Not Detect.)
== END 2024-12-29 09:13 | disposition home or self-care (01) ==
LOC: HO.LAB 09:12
PROVIDERS: PCP Internal Medicine; Visit Provider Nurse Practitioner Family
DX: J00 Acute nasopharyngitis [common cold] (principal)
CPT/HCPCS: 87633; 99212